=== PATIENT | male | born 1995 | race African-American/Black ===

== ENCOUNTER 2020-05-09 03:25 | Emergency (ER) | payer OTHER ==
[~2020-05-09] VITALS: Ht 185.4 cm; Wt 68.0 kg
[2020-05-09 04:51] LABS: ABSOLUTE NEUTROPHILS 6.7 thou/uL (1.4-8.2); BASOPHILS 0.5 % (0.0-2.0); CALCIUM 9.2 mg/dL (8.5-10.1); EOSINOPHILS 0.8 % (0.0-3.0); HEMATOCRIT 44.1 % (42.0-52.0); HEMOGLOBIN 14.7 gm/dL (14.0-18.0); LYMPHOCYTES 17.9 % (24.0-44.0); MCH 30.5 pg (26.0-34.0); MCHC 33.3 g/dL (28.0-37.0); MCV 91.5 fL (80.0-100.0); MONOCYTES 5.8 % (1.0-8.0); PLATELET COUNT 256 thou/uL (150-400); POTASSIUM 3.6 mmol/L (3.5-5.1); RBC 4.82 mil/uL (4.50-6.00); RDW 13.7 % (10.5-14.5); WBC 8.9 thou/uL (4.0-11.0)
[2020-05-09 04:57] LABS: ALBUMIN 4.3 g/dL (3.4-5.0); TOTAL BILIRUBIN 0.6 mg/dL (0.2-1.0); TOTAL PROTEIN 7.2 g/dL (6.4-8.2)
[2020-05-09 05:56] LABS: URINE BILIRUBIN NEGATIVE (Negative); URINE BLOOD TRACE (Negative); URINE CLARITY CLEAR; URINE COLOR YELLOW; URINE GLUCOSE-RANDOM* NEGATIVE (Negative); URINE KETONES NEGATIVE (Negative); URINE LEUKOCYTES-REFLEX NEGATIVE (Negative); URINE NITRITE-REFLEX NEGATIVE (Negative); URINE PROTEIN (DIPSTICK) NEGATIVE (Negative); URINE SPECIFIC GRAVITY 1.015 (1.005-1.035); URINE UROBILINOGEN 0.2 E.U./dl (0.2-1.0)
[2020-05-09] MEDS ORDERED: PEPCID40 MG PO (06:20)
[2020-05-09] MEDS ORDERED: ZOFRAN ODT4 MG PO (06:20)
[2020-05-09] MEDS ORDERED: BENTYL 20 MG TA20 M1 PO (06:20)
[2020-05-09 06:35] VITALS: BP 104/58
== END 2020-05-09 06:35 | disposition home or self-care (01) ==
LOC: ER 03:25
PROVIDERS: Emergency Medicine
DX: K52.9 Noninfective gastroenteritis and colitis, unspecified (principal); R11.2 Nausea with vomiting, unspecified